=== PATIENT | female | born 1995 | race Caucasian/White ===

== ENCOUNTER 2024-01-30 15:33 | Emergency (ER) | payer MEDICAID ==
[~2024-01-30] VITALS: Ht 139.7 cm; Wt 38.6 kg
[~2024-01-30 15:33] MED LIST: AMOXICILLI400 MG/51 PO; AMOXICILLIN 50500 MG PO; CATAPRES 0.1MG0.1 MG PO; DESYREL 50MG50 MG PO; DIFLUCAN150 MG PO; FLEET SUPPOSITORY; MIRALAX 17GM PK1 PKT PO; NO HOME MEDICATIONS; NYSTATIN CREAM15 GM TP; PROVENTIL0.09 MG/A1 IH; RISPERDAL 0.20.25 MG PO; ZITHROMAX Z PA250 MG PO; ZOLOFT 25MG25 MG PO
[2024-01-30 15:40] VITALS: TEMP 98.4
[2024-01-30] MEDS ORDERED: Acetaminophen Oral Susp 325 MG/10.15 ML UD PO ONE (16:00)
[2024-01-30] MEDS ORDERED: Ibuprofen Oral Susp 100 MG/5 ML UD PO ONE (16:00)
[2024-01-30 17:06] LABS: STREP A NEGATIVE
[2024-01-30 17:28] VITALS: BP 136/86; PULSE 96
== END 2024-01-30 17:30 | disposition home or self-care (01) ==
LOC: COL.ER 15:33
PROVIDERS: Emergency Medicine
DX: J02.9 Acute pharyngitis, unspecified (principal); R00.0 Tachycardia, unspecified